=== PATIENT | male | born 1995 | race Caucasian/White ===

== ENCOUNTER 2018-04-20 02:53 | Emergency (ER) | payer OTHER ==
[2018-04-20 05:35] LABS: ETHYL ALCOHOL (ETHANOL) 0.176 % (0.000-0.010)
== END 2018-04-20 06:17 | disposition home or self-care (01) ==
LOC: M ED 02:53
DX: S02.401A Maxillary fracture, unspecified side, initial encounter for closed fracture (principal); Y04.8XXA Assault by other bodily force, initial encounter; Y92.59 Other trade areas as the place of occurrence of the external cause; Y93.9 Activity, unspecified; Y99.9 Unspecified external cause status; Z72.0 Tobacco use
CPT/HCPCS: 70450